=== PATIENT | female | born 1945 | race Caucasian/White ===

== ENCOUNTER 2020-12-17 10:18 | Day surgery (SDC) | payer MEDICARE ==
[~2020-12-17] VITALS: Ht 170.2 cm; Wt 130.6 kg
[~2020-12-17 10:18] MED LIST: BIOT1TAB2 PO; COLE1TAB5 PO; DIPH1TAB6 PO; LACT1CAP20 PO; LINA5TAB PO; LOSA25TA25 PO
[2020-12-17 10:45] VITALS: BP 135/79
[2020-12-17] MEDS ORDERED: CHLORHEXIDINE 15 ML UDC PO ONE (11:00)
[2020-12-17] MEDS ORDERED: LACTATED RINGERS 1,000 ML IV SCH (11:00)
[2020-12-17] MEDS ORDERED: CIPR500T87 PO (11:43)
[2020-12-17] MEDS ORDERED: FENTANYL PF 100 MCG/2ML ONE (13:24)
[2020-12-17] MEDS ORDERED: ACETAMINOPHEN 325 MG TABLET PO PRN (13:30)
[2020-12-17] MEDS ORDERED: PROMETHAZINE 25 MG/ML, 1ML IVPush PRN (13:30)
[2020-12-17] MEDS ORDERED: HALOPERIDOL 5 MG/ML IV PRN (13:30)
[2020-12-17] MEDS ORDERED: hydrALAzine 20 MG/ML, 1ML IV PRN (13:30)
[2020-12-17] MEDS ORDERED: OXYcodone 5 MG/5 ML ORAL.SOL UDC PO PRN (13:30)
[2020-12-17] MEDS ORDERED: HYDROmorphone 1 MG/ML, 1ML INJ IVPush PRN (13:30)
[2020-12-17] MEDS ORDERED: MEPERIDINE/PF 25MG/0.5ML IVPush PRN (13:30)
[2020-12-17] MEDS ORDERED: FENTANYL PF 100 MCG/2ML IV PRN (13:30)
[2020-12-17] MEDS ORDERED: LABETALOL 5MG/ML, 20ML IV PRN (13:30)
[2020-12-17] MEDS ORDERED: DIPHENHYDRAMINE 50 MG/ML, 1ML IVPush PRN (13:30)
[2020-12-17] MEDS ORDERED: OMNIPAQUE 350 MG/ML, 50 ML BOTTLE ONE (13:39)
[2020-12-17] MEDS ORDERED: MIDAZOLAM 1 MG/ML, 2ML ONE (13:51)
[2020-12-17] MEDS ORDERED: PHENYLEPHRINE 10 MG/ML ONE (14:31)
[2020-12-17] MEDS ORDERED: ROCURONIUM 10MG/ML,5ML ONE (15:28)
[2020-12-17] MEDS ORDERED: DEXAMETHASONE 4 MG/ML, 1ML ONE (15:28)
[2020-12-17] MEDS ORDERED: NEOSTIGMINE 1 MG/ML, 10ML ONE (15:28)
[2020-12-17] MEDS ORDERED: GLYCOPYRROLATE 0.2MG/1ML, 5ML ONE (15:28)
[2020-12-17] MEDS ORDERED: CEFAZOLIN 1,000 MG ONE (15:28)
[2020-12-17] MEDS ORDERED: ONDANSETRON 2MG/ML, 2ML ONE (15:28)
[2020-12-17] MEDS ORDERED: SUCCINYLCHOLINE 20 MG/ML, 10ML ONE (15:28)
[2020-12-17] MEDS ORDERED: PROPOFOL 10 MG/ML, 20ML ONE (15:28)
== END 2020-12-17 17:45 | disposition home or self-care (01) ==
LOC: OUT 10:18
PROVIDERS: ATTEND Urology
DX: N13.2 Hydronephrosis with renal and ureteral calculous obstruction (principal); E11.9 Type 2 diabetes mellitus without complications; I10 Essential (primary) hypertension; Z20.822 Contact with and (suspected) exposure to COVID-19; Z79.2 Long term (current) use of antibiotics; Z79.899 Other long term (current) drug therapy; Z87.891 Personal history of nicotine dependence; Z72.89 Other problems related to lifestyle; Z80.0 Family history of malignant neoplasm of digestive organs; Z98.890 Other specified postprocedural states
CPT/HCPCS: 50690; 52352; 74420; 74425; 82360; 82962; 88300; 93005; C1758; C1769; J0330; J0690; J1100; J2250; J2370; J2405; J2704; J3010; J7120; Q9967; U0003; U0005; J2710